=== PATIENT | female | born 1950 | race Caucasian/White ===

== ENCOUNTER 2018-06-25 09:05 | Day surgery (SDC) | payer OTHER ==
[~2018-06-25 09:05] MED LIST: ALBU90OI6; AMLO5 PO; AMOCLA875 PO; ASPI81CH PO; ATECHL PO; ATEN25 PO; ATEN50 PO; ATOR40TA PO; AZIT250 PO; Allergy Relief10 M1 PO; BUSP10 PO; CEFA500 PO; CHOL10002 PO; CITA20; CLIN300 PO; CODGUAEL PO; CYCL10 PO; Coq-10100 MG PO; FISH1000 PO; FLINTSTONES GU1 EACH PO; FLUO20; FLUO20 PO; GLUCHON; Glucophage1000 MG; HYDACE5 PO; IRBE150 PO; LORA10ER PO; LOSA50; MELO7.5; MULVITMINF; NITR.4SL SL; OXYACE5T PO; Omeprazole20 M1 PO; RED YEAST RICE; RESTASIS EYE GTTS; RXHYDACE PO; SULTRIDS PO; VITAMIN B122500 MC1 PO; [UNRECOGNIZED DRUG - CODE]
[2018-06-25] MEDS ORDERED: TIZANIDINE HCL4 MG PO (15:03)
[2018-06-25] MEDS ORDERED: HYDR1TAB94 PO (15:05)
[2018-06-26 04:50] LABS: BASOPHILS ABSOLUTE AUTO 0.02 K/mm3 (0.00-0.23); BASOPHILS PERCENT AUTO 0 % (0-2); EOSINOPHILS PERCENT AUTO 0 % (0-6); Hematocrit 31.5 % (33.0-51.0); Hemoglobin 10.1 g/dL (11.5-16.0); IMMATURE GRAN ABSOLUTE AUTO 0.05 K/mm3 (0.00-0.10); IMMATURE GRAN PERCENT AUTO 0 % (0-1); LYMPHOCYTES ABSOLUTE AUTO 1.31 K/mm3 (0.84-5.20); LYMPHOCYTES PERCENT AUTO 9 % (21-46); MONOCYTES ABSOLUTE AUTO 0.55 K/mm3 (0.16-1.47); MONOCYTES PERCENT AUTO 4 % (4-13); Mean Corpuscular HGB 31.7 pg (26.0-34.0); Mean Corpuscular HGB Conc 32.1 g/dL (31.5-36.5); Mean Corpuscular Volume 99 fL (80-100); Mean Platelet Volume 12.3 fL (9.1-12.4); NEUTROPHILS ABSOLUTE AUTO 12.57 K/mm3 (1.96-9.15); NEUTROPHILS PERCENT AUTO 87 % (41-73); Platelet Count 174 K/mm3 (150-400); RDW Coefficient Variation 12.1 % (11.7-14.2); Red Blood Cell Count 3.19 M/mm3 (3.80-5.20)
[2018-06-26 05:25] LABS: Magnesium, Blood 1.9 mg/dL (1.6-2.4)
[2018-06-26 05:27] LABS: Calcium, Blood 8.2 mg/dL (8.5-10.1); Potassium, Blood 4.2 mmol/L (3.5-5.5)
[2018-06-26] MEDS ORDERED: ENOX40I SC (07:45)
[2018-06-26] MEDS ORDERED: Percocet 5-3251 EACH PO (07:45)
== END 2018-06-26 11:30 | disposition home or self-care (01) ==
LOC: ORSCMMR 09:05 → ORD 10:30 → SURS 14:32 → ORSCMMR 06-26 11:30
PROVIDERS: Orthopaedic Surgery
PROC: 0SRC0J9 Replacement of Right Knee Joint with Synthetic Substitute, Cemented, Open Approach (ICD-10-PCS; principal; 2018-06-26)
PROC: 8E0YXBZ Computer Assisted Procedure of Lower Extremity (ICD-10-PCS; principal; 2018-06-26)
DX: M17.11 Unilateral primary osteoarthritis, right knee (principal); J45.909 Unspecified asthma, uncomplicated; G47.33 Obstructive sleep apnea (adult) (pediatric); I10 Essential (primary) hypertension; F32.9 Major depressive disorder, single episode, unspecified; K21.9 Gastro-esophageal reflux disease without esophagitis; E66.9 Obesity, unspecified; Z68.41 Body mass index [BMI] 40.0-44.9, adult; Z79.82 Long term (current) use of aspirin; Z79.899 Other long term (current) drug therapy
CPT/HCPCS: 36415; 73560-RT; 80048; 83735; 85025; 86850; 86900; 86901; 97110; 97116; 97162; 97530; C1713; C1776; G8978; G8979; G8980; J0171; J0690; J0735; J1100; J1650; J1885; J2250; J2405; J2795; J3010; J3370; J7120

== ENCOUNTER 2018-10-29 09:01 | Day surgery (SDC) | payer OTHER ==
[~2018-10-29] VITALS: Wt 96.2 kg
[~2018-10-29 09:01] MED LIST changes: +ENOX40I SC; +HYDR1TAB94 PO; +Percocet 5-3251 EACH PO; +TIZANIDINE HCL4 MG PO
--- NOTE | 2018-10-29 09:40 | NUR ---
PT ADMITTED TO [facility]. AGREES WITH PLANNED SURGERY. MEDS, ALLERGIES, AND HX REVIEWED. LUNG SOUNDS CLEAR. PT STATES 5 DAYS OF MUPIROCIN OINTMENT BILATERALLY TO NARES AND CHLORHEXADINE SHOWER X5 DAYS.
--- NOTE | 2018-10-29 10:00 | NUR ---
NOZIN AMPULES X3 TO NARES BILATERALLY.
--- NOTE | 2018-10-29 10:48 | NUR ---
UP TO THE BATHROOM TO VOID.
--- NOTE | 2018-10-29 16:22 | NUR ---
10/29/18 1622 Waqas Garcia AREAS OF SKIN BREAKDOWN NOTED ON ABDOMINAL FOLDS
--- NOTE | 2018-10-29 19:41 | NUR ---
SHIFT SUMMARY PAIN HAS BEEN MANGED WITH PO PAIN MEDICATION. PT IS A 1 ASSIST WHEN OOB. TOLERATING PO WELL. VSS. REPORT GIVEN TO ALYSSA SHORT.
[2018-10-30 04:08] LABS: BASOPHILS ABSOLUTE AUTO 0.01 K/mm3 (0.00-0.23); BASOPHILS PERCENT AUTO 0 % (0-2); EOSINOPHILS PERCENT AUTO 0 % (0-6); Hematocrit 29.4 % (33.0-51.0); Hemoglobin 9.4 g/dL (11.5-16.0); IMMATURE GRAN ABSOLUTE AUTO 0.04 K/mm3 (0.00-0.10); IMMATURE GRAN PERCENT AUTO 0 % (0-1); LYMPHOCYTES ABSOLUTE AUTO 1.01 K/mm3 (0.84-5.20); LYMPHOCYTES PERCENT AUTO 8 % (21-46); MONOCYTES ABSOLUTE AUTO 0.65 K/mm3 (0.16-1.47); MONOCYTES PERCENT AUTO 5 % (4-13); Mean Corpuscular HGB 31.9 pg (26.0-34.0); Mean Corpuscular Volume 100 fL (80-100); Mean Platelet Volume 11.8 fL (9.1-12.4); NEUTROPHILS ABSOLUTE AUTO 11.22 K/mm3 (1.96-9.15); NEUTROPHILS PERCENT AUTO 87 % (41-73); Platelet Count 186 K/mm3 (150-400); RDW Coefficient Variation 12.7 % (11.7-14.2); RDW Standard Deviation 46.4 fL (35.1-46.3); Red Blood Cell Count 2.95 M/mm3 (3.80-5.20); White Blood Cell Count 12.93 K/mm3 (4.00-11.30)
[2018-10-30 04:27] LABS: Anion Gap 8 mmol/L (6-16); Blood Urea Nitrogen 21 mg/dL (8-24); Bun/Creatinine Ratio 23.1 (12.0-20.0); CO2, Blood 26 mmol/L (21-32); Calcium, Blood 8.2 mg/dL (8.5-10.1); Chloride, Blood 105 mmol/L (98-108); Creatinine, Blood 0.91 mg/dL (0.40-1.00); Glomerular Filtration Rate >60 (60-); Glucose, Blood 153 mg/dL (70-99); Magnesium, Blood 1.8 mg/dL (1.6-2.4); Potassium, Blood 4.4 mmol/L (3.5-5.5); Sodium, Blood 139 mmol/L (136-145)
--- NOTE | 2018-10-30 04:40 | NUR ---
SHIFT SUMMARY ASSUMED CARE AT 0100, REPORT RECIEVED FROM CLARE, RN. PT A&O X4; POD#1 L TKA; MIKE WRAP CDI AT THIS TIME. PPPX4; PT DENIES N/T IN EXT. CRYOTHERAPY TO L KNEE WHILE PT IN BED. PAIN MANGED PER EMAR. PT UP TO TOILET WITH FWW AND SBA; MOVING WELL. PT DENIES CP, NAUSEA, AND SOB; RA. PATRICIO'S AND SCD'S TO BLE'S. CALL LIGHT IN REACH; PT DEMONSTRATES USE. WCTM UNTIL REPORT TO DAY SHIFT RN.
[2018-10-30] MEDS ORDERED: ENOX40I SC (11:10)
[2018-10-30] MEDS ORDERED: PROM25 PO (11:11)
[2018-10-30] MEDS ORDERED: OXYC5 PO (11:11)
[2018-10-30] MEDS ORDERED: ASPI325EC PO (11:13)
--- NOTE | 2018-10-30 12:28 | NUR ---
DISCHARGE PT PROVIDED WITH WRITTEN AND VERBAL DISCHARGE INSTRUCTIONS, DRESSINGS, AND SCRIPTS. SHE REPORTED UNDERSTANDING AFTER QUESTIONS WERE ANSWERED. EXTRA PATRICIO HODGSON PROVIDED. PT GIVEN PAIN MEDICATION PRIOR TO DISCHARGE. ESCORTED OUT IN W/C BY RODGER BENNETT AT APPROXIMATELY 1228.
== END 2018-10-30 12:28 | disposition home or self-care (01) ==
LOC: ORSCMMR 09:01 → ORD 10:30 → ORSCMMR 10:30 → SURS 15:20 → ORSCMMR 10-30 12:28
PROVIDERS: Orthopaedic Surgery
PROC: 8E0YXBZ Computer Assisted Procedure of Lower Extremity (ICD-10-PCS; principal; 2018-10-29 10:30)
PROC: 0SRD0J9 Replacement of Left Knee Joint with Synthetic Substitute, Cemented, Open Approach (ICD-10-PCS; principal; 2018-10-29 10:30)
DX: M17.12 Unilateral primary osteoarthritis, left knee (principal); I10 Essential (primary) hypertension; J45.909 Unspecified asthma, uncomplicated; I25.10 Atherosclerotic heart disease of native coronary artery without angina pectoris; E66.01 Morbid (severe) obesity due to excess calories; Z68.39 Body mass index [BMI] 39.0-39.9, adult; Z79.899 Other long term (current) drug therapy
CPT/HCPCS: 36415; 73560-LT; 80048; 83735; 85025; 86850; 86900; 86901; 88300; 97110; 97116; 97162; 97530; C1713; C1776; J0171; J0690; J0735; J1100; J1650; J1885; J2250; J2795; J3010; J3370; J7120

== ENCOUNTER 2018-11-05 13:26 | Emergency (ER) | payer OTHER ==
[~2018-11-05] VITALS: Ht 154.9 cm; Wt 95.2 kg
[~2018-11-05 13:26] MED LIST changes: +ASPI325EC PO; +OXYC5 PO; +PROM25 PO
== END 2018-11-05 13:45 | disposition home or self-care (01) ==
LOC: ER 13:26
DX: L02.31 Cutaneous abscess of buttock (principal); Z88.8 Allergy status to other drugs, medicaments and biological substances; Z91.041 Radiographic dye allergy status; Z79.82 Long term (current) use of aspirin; Z79.899 Other long term (current) drug therapy
CPT/HCPCS: 99283

== ENCOUNTER 2019-10-14 09:58 | Day surgery (SDC) | payer OTHER ==
[~2019-10-14] VITALS: Ht 154.9 cm; Wt 103.0 kg
[~2019-10-14 09:58] MED LIST changes: +ATOR10 PO; +CITA20 PO
[2019-10-14] MEDS ORDERED: VALS80 PO (10:18)
[2019-10-14] MEDS ORDERED: OMEPRAZOLE20 MG PO (10:20)
[2019-10-14] MEDS ORDERED: ELIQUIS5 M2 PO (10:22)
--- NOTE | 2019-10-14 14:46 | NUR ---
PT DRESSED, IV DC'D INTACT, AMB TO BTR X 2, TR BAND REMOVED, DRESSING TO R RADIAL SITE, R WRIST SPLINT PLACED, PT DC'D BY WC W DRIVING PT HOME, SEE RYTHMN STRIP RECORD FOR RECOVERY VITAL SIGNS. MEDS CALLED TO RX PER ORDER.
== END 2019-10-14 14:35 | disposition home or self-care (01) ==
LOC: MHTC 09:58
PROC: B201YZZ Plain Radiography of Multiple Coronary Arteries using Other Contrast (ICD-10-PCS; principal; 2019-10-14)
PROC: 4A023N7 Measurement of Cardiac Sampling and Pressure, Left Heart, Percutaneous Approach (ICD-10-PCS; principal; 2019-10-14)
PROC: B205YZZ Plain Radiography of Left Heart using Other Contrast (ICD-10-PCS; principal; 2019-10-14)
DX: I25.10 Atherosclerotic heart disease of native coronary artery without angina pectoris (principal); I10 Essential (primary) hypertension; E78.2 Mixed hyperlipidemia; K21.9 Gastro-esophageal reflux disease without esophagitis; E66.9 Obesity, unspecified; F41.9 Anxiety disorder, unspecified; Z79.82 Long term (current) use of aspirin; Z79.899 Other long term (current) drug therapy; Z91.041 Radiographic dye allergy status; Z88.8 Allergy status to other drugs, medicaments and biological substances; Z68.41 Body mass index [BMI] 40.0-44.9, adult
CPT/HCPCS: 76937; 85347; 93458; 93571; 99152; 99153; C1769; C1887; C1894; J1644; J2250; J3010; J7030; Q9967

== ENCOUNTER → 2022-07-26 | Outpatient (CLI) | payer OTHER ==
[~2022-07-26] MED LIST changes: +ELIQUIS5 M2 PO; +OMEPRAZOLE20 MG PO; +VALS80 PO
== END | disposition home or self-care (01) ==
LOC: LAB 10:33 → LAB SHORT 10:33
DX: L57.0 Actinic keratosis (principal); D04.5 Carcinoma in situ of skin of trunk
CPT/HCPCS: 88305

== ENCOUNTER → 2022-12-21 | Outpatient (CLI) | payer OTHER ==
[2022-12-21 19:28] LABS: Source, Urine Voided
[2022-12-21 19:48] LABS: Bacteria Few /hpf; Red Blood Cells, Urine 0-2 /hpf (0-2); Squamous Epithelial Cells Few /hpf (Few)
== END ==
LOC: LAB SHORT 17:40
PROVIDERS: Family Medicine
DX: M54.50 Low back pain, unspecified (principal); R30.0 Dysuria
CPT/HCPCS: 81015; 87086

== ENCOUNTER 2023-02-21 13:49 | Day surgery (SDC) | payer OTHER ==
[~2023-02-21] VITALS: Ht 154.9 cm; Wt 82.9 kg
[2023-02-21] MEDS ORDERED: Bystolic2.5 MG (14:07)
[2023-02-21 16:39] VITALS: BP 114/53
== END 2023-02-21 16:41 | disposition home or self-care (01) ==
LOC: ORSCSDS 13:49
PROVIDERS: Internal Medicine Gastroenterology
PROC: 0DBL8ZX Excision of Transverse Colon, Via Natural or Artificial Opening Endoscopic, Diagnostic (ICD-10-PCS; principal; 2023-02-21 15:15)
DX: Z12.11 Encounter for screening for malignant neoplasm of colon (principal); Z86.010 Personal history of colon polyps; D12.3 Benign neoplasm of transverse colon; K64.8 Other hemorrhoids; I10 Essential (primary) hypertension; K21.9 Gastro-esophageal reflux disease without esophagitis; Z98.84 Bariatric surgery status; Z79.899 Other long term (current) drug therapy; Z79.01 Long term (current) use of anticoagulants
CPT/HCPCS: 88305; J0330; J0461; J2001; J2405; J2704; J7120; Q9968

== ENCOUNTER → 2023-02-26 | Outpatient (CLI) | payer OTHER ==
[~2023-02-26] MED LIST changes: +Bystolic2.5 MG
[2023-02-27 13:16] LABS: Adenovirus F 40/41 Not Detected (NOT DETECT); Astrovirus Not Detected (NOT DETECT); Campylobacter Sp Not Detected (NOT DETECT); Cryptosporidium Not Detected (NOT DETECT); Cyclospora Cayetanensis Not Detected (NOT DETECT); E. Coli O157 Not Detected (NOT DETECT); Entamoeba Histolytica Not Detected (NOT DETECT); Enteroaggregative E. coli-EAEC Not Detected (NOT DETECT); Enteropathogenic E. coli-EPEC Not Detected (NOT DETECT); Enterotoxigenic E. coli-ETEC Not Detected (NOT DETECT); Giardia Lamblia Not Detected (NOT DETECT); Norovirus GI/GII Not Detected (NOT DETECT); Plesiomonas Shigelloides Not Detected (NOT DETECT); Rotavirus A Not Detected (NOT DETECT); Salmonella Sp Not Detected (NOT DETECT); Sapovirus Not Detected (NOT DETECT); Shiga Toxin-prod E. coli-STEC Not Detected (NOT DETECT); Shigella/Enteroin E. coli-EIEC Not Detected (NOT DETECT); Vibrio Cholerae Not Detected (NOT DETECT); Vibrio Sp Not Detected (NOT DETECT); Yersinia Enterocolitica Not Detected (NOT DETECT)
== END ==
LOC: LAB 08:00 → LAB SHORT 08:00
PROVIDERS: Internal Medicine Gastroenterology
DX: K52.9 Noninfective gastroenteritis and colitis, unspecified (principal)
CPT/HCPCS: 87507

== ENCOUNTER → 2023-03-01 | Outpatient (CLI) | payer OTHER | END | disposition home or self-care (01) | LOC: LAB 11:36 → LAB SHORT 11:36 | PROVIDERS: Internal Medicine Gastroenterology | DX: K52.9 Noninfective gastroenteritis and colitis, unspecified (principal) | CPT/HCPCS: 82710 ==

== ENCOUNTER → 2023-03-27 | Outpatient (CLI) | payer OTHER | LOC: LAB SHORT 07:00 → LAB 07:00 | DX: K52.9 Noninfective gastroenteritis and colitis, unspecified (principal) | CPT/HCPCS: 82653 ==

== ENCOUNTER 2023-04-09 07:18 | Day surgery (SDC) | payer OTHER ==
[~2023-04-09] VITALS: Ht 154.9 cm; Wt 84.1 kg
--- NOTE | 2023-04-09 07:48 | NUR ---
04/09/23 0748 Maria Elena Villar CALL LIGHT WITHIN REACH. TETRACAINE IN AT 0741 IN RIGHT EYE AND PLEDGETT IN AT 07
[2023-04-09 09:12] VITALS: BP 137/66
--- NOTE | 2023-04-09 09:23 | NUR ---
[facility]
== END 2023-04-09 09:31 | disposition home or self-care (01) ==
LOC: ORSCSDS 07:18
PROVIDERS: Student in an Organized Health Care Education/Training Program
PROC: 08DJ3ZZ Extraction of Right Lens, Percutaneous Approach (ICD-10-PCS; principal; 2023-04-09 08:30)
DX: H25.13 Age-related nuclear cataract, bilateral (principal); H52.213 Irregular astigmatism, bilateral; I10 Essential (primary) hypertension; G47.33 Obstructive sleep apnea (adult) (pediatric); I25.10 Atherosclerotic heart disease of native coronary artery without angina pectoris; K21.9 Gastro-esophageal reflux disease without esophagitis; Z79.01 Long term (current) use of anticoagulants; Z79.899 Other long term (current) drug therapy
CPT/HCPCS: J2250; J3010; J7040; V2632

== ENCOUNTER → 2023-07-15 | Outpatient (CLI) | payer OTHER | LOC: PLD 08:26 → LAB SHORT 08:26 | DX: L91.0 Hypertrophic scar (principal) | CPT/HCPCS: 88305 ==

== ENCOUNTER → 2023-08-12 | Outpatient (CLI) | payer OTHER ==
[2023-08-12 08:36] LABS: BASOPHILS ABSOLUTE AUTO 0.03 K/mm3 (0.00-0.23); BASOPHILS PERCENT AUTO 1 % (0-2); Hematocrit 31.3 % (33.0-51.0); Hemoglobin 10.3 g/dL (11.5-16.0); LYMPHOCYTES ABSOLUTE AUTO 1.27 K/mm3 (0.84-5.20); LYMPHOCYTES PERCENT AUTO 26 % (21-46); MONOCYTES ABSOLUTE AUTO 0.61 K/mm3 (0.16-1.47); MONOCYTES PERCENT AUTO 12 % (4-13); Mean Corpuscular HGB 32.6 pg (26.0-34.0); Mean Corpuscular HGB Conc 32.9 g/dL (31.5-36.5); Mean Corpuscular Volume 99 fL (80-100); RDW Coefficient Variation 12.7 % (11.7-14.2); RDW Standard Deviation 46.2 fL (35.1-46.3); Red Blood Cell Count 3.16 M/mm3 (3.80-5.20); White Blood Cell Count 4.94 K/mm3 (4.00-11.30)
[2023-08-12 08:45] LABS: EOSINOPHILS PERCENT AUTO 0 % (0-6); IMMATURE GRAN ABSOLUTE AUTO 0.01 K/mm3 (0.00-0.10); IMMATURE GRAN PERCENT AUTO 0 % (0-1); NEUTROPHILS ABSOLUTE AUTO 3.02 K/mm3 (1.96-9.15); NEUTROPHILS PERCENT AUTO 61 % (41-73)
[2023-08-12 08:49] LABS: Albumin, Blood 2.9 g/dL (3.4-5.0); Albumin/Globulin Ratio 0.8 (0.8-1.8); Bilirubin, Total 0.6 mg/dL (0.1-1.0); Bun/Creatinine Ratio 10.4 (12.0-20.0); Calcium, Blood 8.3 mg/dL (8.5-10.1); Creatinine, Blood 1.15 mg/dL (0.40-1.00); Globulin, Blood 3.5 g/dL (2.2-4.0); Potassium, Blood 3.1 mmol/L (3.5-5.5); Total Protein, Blood 6.4 g/dL (6.4-8.2)
[2023-08-12 09:16] LABS: Mean Platelet Volume 11.3 fL (9.1-12.4); Platelet Count 135 K/mm3 (150-400)
[2023-08-12 15:53] LABS: Campylobacter Sp Detected (NOT DETECT); Plesiomonas Shigelloides Not Detected (NOT DETECT); Salmonella Sp Not Detected (NOT DETECT); Vibrio Cholerae Not Detected (NOT DETECT); Vibrio Sp Not Detected (NOT DETECT); Yersinia Enterocolitica Not Detected (NOT DETECT)
[2023-08-12 15:54] LABS: Adenovirus F 40/41 Not Detected (NOT DETECT); Astrovirus Not Detected (NOT DETECT); Cryptosporidium Not Detected (NOT DETECT); Cyclospora Cayetanensis Not Detected (NOT DETECT); E. Coli O157 Not Detected (NOT DETECT); Entamoeba Histolytica Not Detected (NOT DETECT); Enteroaggregative E. coli-EAEC Detected (NOT DETECT); Enteropathogenic E. coli-EPEC Not Detected (NOT DETECT); Enterotoxigenic E. coli-ETEC Not Detected (NOT DETECT); Giardia Lamblia Not Detected (NOT DETECT); Norovirus GI/GII Not Detected (NOT DETECT); Rotavirus A Not Detected (NOT DETECT); Sapovirus Not Detected (NOT DETECT); Shiga Toxin-prod E. coli-STEC Not Detected (NOT DETECT); Shigella/Enteroin E. coli-EIEC Not Detected (NOT DETECT)
== END ==
LOC: LAB SHORT 08:32 → LAB 08:32
PROVIDERS: Physician Assistant
DX: R10.9 Unspecified abdominal pain (principal); R19.7 Diarrhea, unspecified
CPT/HCPCS: 80053; 83690; 85025; 87507

== ENCOUNTER → 2023-08-14 | Outpatient (CLI) | payer OTHER ==
[2023-08-14 13:23] LABS: BASOPHILS ABSOLUTE AUTO 0.07 K/mm3 (0.00-0.23); BASOPHILS PERCENT AUTO 1 % (0-2); Hematocrit 30.8 % (33.0-51.0); Hemoglobin 10.2 g/dL (11.5-16.0); LYMPHOCYTES ABSOLUTE AUTO 1.22 K/mm3 (0.84-5.20); LYMPHOCYTES PERCENT AUTO 18 % (21-46); MONOCYTES ABSOLUTE AUTO 0.98 K/mm3 (0.16-1.47); MONOCYTES PERCENT AUTO 15 % (4-13); Mean Corpuscular HGB 32.2 pg (26.0-34.0); Mean Corpuscular HGB Conc 33.1 g/dL (31.5-36.5); Mean Corpuscular Volume 97 fL (80-100); Mean Platelet Volume 12.1 fL (9.1-12.4); Platelet Count 150 K/mm3 (150-400); RDW Coefficient Variation 12.9 % (11.7-14.2); RDW Standard Deviation 45.7 fL (35.1-46.3); Red Blood Cell Count 3.17 M/mm3 (3.80-5.20); White Blood Cell Count 6.63 K/mm3 (4.00-11.30)
[2023-08-14 13:30] LABS: Calcium, Blood 8.4 mg/dL (8.5-10.1); Creatinine, Blood 1.25 mg/dL (0.40-1.00); Magnesium, Blood 1.8 mg/dL (1.6-2.4); Potassium, Blood 3.2 mmol/L (3.5-5.5)
[2023-08-14 13:37] LABS: EOSINOPHILS ABSOLUTE AUTO 0.04 K/mm3 (0.00-0.68); EOSINOPHILS PERCENT AUTO 1 % (0-6); IMMATURE GRAN ABSOLUTE AUTO 0.06 K/mm3 (0.00-0.10); IMMATURE GRAN PERCENT AUTO 1 % (0-1); NEUTROPHILS ABSOLUTE AUTO 4.26 K/mm3 (1.96-9.15); NEUTROPHILS PERCENT AUTO 64 % (41-73)
== END | disposition home or self-care (01) ==
LOC: LAB 13:19 → LAB SHORT 13:19
PROVIDERS: Physician Assistant
DX: R19.7 Diarrhea, unspecified (principal)
CPT/HCPCS: 80048; 83735; 85025

== ENCOUNTER → 2023-08-29 | Outpatient (CLI) | payer OTHER ==
[~2023-08-29] MED LIST changes: +ATOR20 PO; +Colace250 MG PO
== END | disposition home or self-care (01) ==
LOC: LAB 07:20 → LAB SHORT 07:20
DX: R30.0 Dysuria (principal)
CPT/HCPCS: 87086

== ENCOUNTER 2023-09-01 10:37 | Inpatient (IN) | payer OTHER ==
[~2023-09-01] VITALS: Ht 154.9 cm; Wt 88.1 kg
[2023-09-01] VITALS (9 sets, daily range): BP systolic 107–138; BP diastolic 59–75
[~2023-09-01 10:37] MED LIST changes: -ATOR20 PO; -Colace250 MG PO
[2023-09-01 11:43] LABS: BASOPHILS ABSOLUTE AUTO 0.06 K/mm3 (0.00-0.23); BASOPHILS PERCENT AUTO 1 % (0-2); EOSINOPHILS ABSOLUTE AUTO 0.03 K/mm3 (0.00-0.68); EOSINOPHILS PERCENT AUTO 0 % (0-6); Hematocrit 20.7 % (33.0-51.0); Hemoglobin 6.4 g/dL (11.5-16.0); IMMATURE GRAN ABSOLUTE AUTO 0.05 K/mm3 (0.00-0.10); IMMATURE GRAN PERCENT AUTO 0 % (0-1); LYMPHOCYTES ABSOLUTE AUTO 2.94 K/mm3 (0.84-5.20); LYMPHOCYTES PERCENT AUTO 24 % (21-46); MONOCYTES ABSOLUTE AUTO 0.43 K/mm3 (0.16-1.47); MONOCYTES PERCENT AUTO 4 % (4-13); Mean Corpuscular HGB 31.8 pg (26.0-34.0); Mean Corpuscular HGB Conc 30.9 g/dL (31.5-36.5); Mean Corpuscular Volume 103 fL (80-100); Mean Platelet Volume 11.5 fL (9.1-12.4); NEUTROPHILS ABSOLUTE AUTO 8.81 K/mm3 (1.96-9.15); NEUTROPHILS PERCENT AUTO 72 % (41-73); Platelet Count 245 K/mm3 (150-400); RDW Coefficient Variation 13.5 % (11.7-14.2); RDW Standard Deviation 50.9 fL (35.1-46.3); Red Blood Cell Count 2.01 M/mm3 (3.80-5.20); White Blood Cell Count 12.32 K/mm3 (4.00-11.30)
[2023-09-01 12:16] LABS: Albumin, Blood 2.4 g/dL (3.4-5.0); Albumin/Globulin Ratio 0.9 (0.8-1.8); Bilirubin, Total 0.2 mg/dL (0.1-1.0); Calcium, Blood 7.5 mg/dL (8.5-10.1); Creatinine, Blood 0.79 mg/dL (0.40-1.00); Globulin, Blood 2.8 g/dL (2.2-4.0); Potassium, Blood 4.6 mmol/L (3.5-5.5); Total Protein, Blood 5.2 g/dL (6.4-8.2)
[2023-09-01] MEDS ORDERED: Colace250 MG PO (13:04)
[2023-09-01 14:21] LABS: Source, Urine Fem Cath
[2023-09-01 14:28] LABS: Appearance, Urine Clear (Clear); Bilirubin, Urine Neg (Neg); Blood, Urine Neg (Neg); Color, Urine Yellow (P-Yellow); Glucose Qualitative, Urine Neg (Neg); Ketones, Urine Neg (Neg); Leukocyte Esterase, Urine Neg (Neg); Nitrite, Urine Neg (Neg); Protein, Urine Neg (Neg); Specific Gravity, Urine 1.015 (1.003-1.022); Urobilinogen, Urine NORM (Normal)
[2023-09-01 14:41] LABS: Percent Saturation 28.8 % (15.0-50.0)
[2023-09-01] MEDS ORDERED: ATOR20 PO (16:11)
--- NOTE | 2023-09-01 17:46 | NUR ---
NEW ADMIT ARRIVED AT 1600, BLOOD TRANSFUSING AT TIME OF ARRIVAL, VSS. LUNGS SOUNDS CLEAR. PATIENT IS AOX4. DENIES N/T. PALE IN SKIN IN APPEARANCE. CAP REFILL<3 SEC. STRONG PEDAL AND RADIAL PULSES. SECOND UNIT OF PRBC'S VERIFIED AND STARTED @1737. VSS, LUNG SOUNDS CLEAR. PATIENT SIG OTHER IN ROOM. PATIENT IS TOELRATING CL DIET AT THIS TIME. CBC LAB FOR 1 HOUR AFTER LAST UNIT TRANSFUSED. CALL LIGHT IN REACH.
[2023-09-01 20:50] LABS: BASOPHILS ABSOLUTE AUTO 0.05 K/mm3 (0.00-0.23); BASOPHILS PERCENT AUTO 0 % (0-2); EOSINOPHILS ABSOLUTE AUTO 0.05 K/mm3 (0.00-0.68); EOSINOPHILS PERCENT AUTO 0 % (0-6); Hematocrit 25.4 % (33.0-51.0); Hemoglobin 8.2 g/dL (11.5-16.0); IMMATURE GRAN ABSOLUTE AUTO 0.03 K/mm3 (0.00-0.10); IMMATURE GRAN PERCENT AUTO 0 % (0-1); LYMPHOCYTES ABSOLUTE AUTO 3.99 K/mm3 (0.84-5.20); LYMPHOCYTES PERCENT AUTO 34 % (21-46); MONOCYTES ABSOLUTE AUTO 0.84 K/mm3 (0.16-1.47); MONOCYTES PERCENT AUTO 7 % (4-13); Mean Corpuscular HGB 30.5 pg (26.0-34.0); Mean Corpuscular HGB Conc 32.3 g/dL (31.5-36.5); Mean Platelet Volume 11.1 fL (9.1-12.4); NEUTROPHILS ABSOLUTE AUTO 6.85 K/mm3 (1.96-9.15); NEUTROPHILS PERCENT AUTO 58 % (41-73); Platelet Count 189 K/mm3 (150-400); RDW Coefficient Variation 16.6 % (11.7-14.2); RDW Standard Deviation 56.4 fL (35.1-46.3); Red Blood Cell Count 2.69 M/mm3 (3.80-5.20); White Blood Cell Count 11.81 K/mm3 (4.00-11.30)
[2023-09-01 20:53] LABS: Mean Corpuscular Volume 94 fL (80-100)
[2023-09-02 05:00] VITALS: BP 136/55
[2023-09-02 06:40] LABS: BASOPHILS ABSOLUTE AUTO 0.07 K/mm3 (0.00-0.23); BASOPHILS PERCENT AUTO 1 % (0-2); EOSINOPHILS ABSOLUTE AUTO 0.16 K/mm3 (0.00-0.68); EOSINOPHILS PERCENT AUTO 2 % (0-6); Hematocrit 24.5 % (33.0-51.0); Hemoglobin 7.9 g/dL (11.5-16.0); IMMATURE GRAN ABSOLUTE AUTO 0.04 K/mm3 (0.00-0.10); IMMATURE GRAN PERCENT AUTO 0 % (0-1); LYMPHOCYTES ABSOLUTE AUTO 3.66 K/mm3 (0.84-5.20); LYMPHOCYTES PERCENT AUTO 41 % (21-46); MONOCYTES ABSOLUTE AUTO 0.55 K/mm3 (0.16-1.47); MONOCYTES PERCENT AUTO 6 % (4-13); Mean Corpuscular HGB 30.3 pg (26.0-34.0); Mean Corpuscular HGB Conc 32.2 g/dL (31.5-36.5); Mean Corpuscular Volume 94 fL (80-100); Mean Platelet Volume 11.8 fL (9.1-12.4); NEUTROPHILS ABSOLUTE AUTO 4.47 K/mm3 (1.96-9.15); NEUTROPHILS PERCENT AUTO 50 % (41-73); Platelet Count 171 K/mm3 (150-400); RDW Coefficient Variation 17.4 % (11.7-14.2); RDW Standard Deviation 59.2 fL (35.1-46.3); Red Blood Cell Count 2.61 M/mm3 (3.80-5.20); White Blood Cell Count 8.95 K/mm3 (4.00-11.30)
[2023-09-02 06:57] LABS: International Normalized Ratio 1.22; Prothrombin Time Results 12.7 Sec (9.7-11.5)
--- NOTE | 2023-09-02 07:02 | NUR ---
SHIFT SUMMARY ADMIT FOR GI BLEED, ADMINISTERED 2U PRBC, FOLLOWING CBC SHOWED INCREASED H&h, BUT DOWN THIS A.M. PT A&OX4, VERY PLEASANT AND COOPERATIVE. PT SLEPT WELL T/O NIGHT W/ USE OF HOME CPAP. PT INDEPENDENT IN ROOM. 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 PT REPORTS CONTINUED BLACK BLOOD IN STOOL. NO ACUTE CHANGES THIS SHIFT. CALL LIGHT W/IN REACH.
[2023-09-02 07:15] LABS: Albumin, Blood 2.5 g/dL (3.4-5.0); Bilirubin, Total 0.5 mg/dL (0.1-1.0); Bun/Creatinine Ratio 34.4 (12.0-20.0); Calcium, Blood 8.1 mg/dL (8.5-10.1); Creatinine, Blood 0.96 mg/dL (0.40-1.00); Globulin, Blood 2.5 g/dL (2.2-4.0); Magnesium, Blood 2.2 mg/dL (1.6-2.4); Phosphorus, Blood 3.6 mg/dL (2.5-4.9); Potassium, Blood 4.6 mmol/L (3.5-5.5)
[2023-09-02 07:23] VITALS: BP 133/62
[2023-09-02 12:12] VITALS: BP 146/60
[2023-09-02 14:32] VITALS: BP 151/53
[2023-09-02 17:42] LABS: Hematocrit 24.7 % (33.0-51.0); Hemoglobin 7.9 g/dL (11.5-16.0)
[2023-09-02 17:51] VITALS: BP 139/60
--- NOTE | 2023-09-02 18:30 | NUR ---
summary NO ACUTE CHANGES T/O SHIFT. PT'S VS AND H&H STABLE. PT HAS DENIED DIZZINESS OR SOB/CP. DR PHILLIPS IN THIS EVENING. PLAN FOR SCOPE TOMORROW. PT'S CALL LIGHT IN REACH.
[2023-09-02 19:15] VITALS: BP 135/59
[2023-09-03] VITALS (15 sets, daily range): BP systolic 88–173; BP diastolic 50–88
[2023-09-03 06:06] LABS: BASOPHILS ABSOLUTE AUTO 0.04 K/mm3 (0.00-0.23); BASOPHILS PERCENT AUTO 1 % (0-2); EOSINOPHILS ABSOLUTE AUTO 0.27 K/mm3 (0.00-0.68); EOSINOPHILS PERCENT AUTO 4 % (0-6); Hematocrit 21.6 % (33.0-51.0); Hemoglobin 7.2 g/dL (11.5-16.0); IMMATURE GRAN ABSOLUTE AUTO 0.02 K/mm3 (0.00-0.10); IMMATURE GRAN PERCENT AUTO 0 % (0-1); LYMPHOCYTES ABSOLUTE AUTO 2.74 K/mm3 (0.84-5.20); LYMPHOCYTES PERCENT AUTO 39 % (21-46); MONOCYTES PERCENT AUTO 7 % (4-13); Mean Corpuscular HGB 30.6 pg (26.0-34.0); Mean Corpuscular HGB Conc 33.3 g/dL (31.5-36.5); Mean Corpuscular Volume 92 fL (80-100); Mean Platelet Volume 11.7 fL (9.1-12.4); NEUTROPHILS ABSOLUTE AUTO 3.44 K/mm3 (1.96-9.15); NEUTROPHILS PERCENT AUTO 49 % (41-73); Platelet Count 151 K/mm3 (150-400); RDW Coefficient Variation 17.2 % (11.7-14.2); RDW Standard Deviation 56.4 fL (35.1-46.3); Red Blood Cell Count 2.35 M/mm3 (3.80-5.20); White Blood Cell Count 7.01 K/mm3 (4.00-11.30)
[2023-09-03 06:38] LABS: Albumin, Blood 2.4 g/dL (3.4-5.0); Albumin/Globulin Ratio 0.9 (0.8-1.8); Bilirubin, Total 0.3 mg/dL (0.1-1.0); Bun/Creatinine Ratio 15.9 (12.0-20.0); Calcium, Blood 8.2 mg/dL (8.5-10.1); Creatinine, Blood 0.94 mg/dL (0.40-1.00); Globulin, Blood 2.7 g/dL (2.2-4.0); Potassium, Blood 4.5 mmol/L (3.5-5.5); Total Protein, Blood 5.1 g/dL (6.4-8.2)
--- NOTE | 2023-09-03 07:52 | NUR ---
SUMMARY NO CHANGES THROUGH THE NIGHT, VSS, ON RA, DENIES PAIN/NAUSEA, NO BM'S, VOIDING WNL, CLEAR LIQUIDS UNTIL 0700 THEN SWITCHED TO ICE/WATER ONLY PER GI ORDERS, PT IS INDEPENDENT IN THE ROOM, REPORT GIVEN TO DAY RN, PT IS AWAKE RESTING IN BED, CALL LIGHT IN REACH
--- NOTE | 2023-09-03 11:27 | NUR ---
DR ALSTON IN TO SEE PT. DISCUSSED H&H. PLAN TO RECHECK LABS THIS EVENING.
--- NOTE | 2023-09-03 12:50 | NUR ---
09/03/23 7200 Kamar Pedro HISTORY, CHART, MEDICATIONS AND ALLERGIES REVIEWED BEFORE START OF PROCEDURE. PATIENT CONFIRMS NPO STATUS AND AGREES WITH SCHEDULED PROCEDURE. 3-LEAD EKG REVIEWED WITH PHYSICIAN PRIOR TO START OF PROCEDURE. MONITOR INTACT WITH CONTINUOUS PULSE OXIMETRY,CAPNOGRAPHY, 3-LEAD EKG, INTERMITTENT BP. SUPPLEMENTAL O2 TO BE TITRATED THROUGHOUT PROCEDURE TO MAINTAIN O2 SATURATION ABOVE 90%. PATIENT DETERMINED TO BE ASA APPROPRIATE FOR PROPOFOL SEDATION PRIOR TO START OF PROCEDURE BY DR. PHILLIPS.
--- NOTE | 2023-09-03 13:21 | NUR ---
pt arrived back to room from scope A&OX4. STOOD AND TRANSFERRED SELF FROM [facility] TO BED WITH MIN ASSIST. DENIES PAIN, N/V OR SOB. CALL LIGHT IN REACH.
--- NOTE | 2023-09-03 13:33 | NUR ---
DR PHILLIPS IN TO SEE PT.
--- NOTE | 2023-09-03 14:30 | NUR ---
Pt. is awake in bed and spouse is present when she welcomes me into the room. Pt. is pleasant, and rapport is established as we discussed common community connections. Facilitated a lengthy life review. Pt. displays evidence of awareness and engagement. Pt. verbalized an expectation to be discharged soon. Prayed with Pt. Pt. and spouse verbalize gratitude for the spiritual care visit.
[2023-09-03 14:42] LABS: Hematocrit 25.5 % (33.0-51.0); Hemoglobin 8.1 g/dL (11.5-16.0)
[2023-09-03] MEDS ORDERED: OMEP20ER PO (16:07)
--- NOTE | 2023-09-03 17:32 | NUR ---
DISCHARGED REVIEWED DC INSTRUCTIONS/ PT VERBALIZED UNDERSTANDING. PT LEFT UNIT IN WC W/POSSESSIONS AND DC INSTRUCTIONS IN HAND, ACCOMPANIED BY SIGNIFICANT OTHER. VSS.
[2023-09-04] MEDS ORDERED: DOCUSATE SODIU250 MG PO (09:58)
[2023-09-04] MEDS ORDERED: NEBIVOLOL HCL5 MG PO (09:59)
[2023-09-04] MEDS ORDERED: CELEXA40 M9 PO (09:59)
[2023-09-04] MEDS ORDERED: ATORVASTATIN CA20 MG PO (09:59)
== END 2023-09-03 17:00 | disposition home or self-care (01) | DRG 378 ==
LOC: ER 10:37 → SURS 14:49
PROVIDERS: Emergency Medicine; Internal Medicine; Internal Medicine Gastroenterology; ADMIT Family Medicine
PROC: 30233N1 Transfusion of Nonautologous Red Blood Cells into Peripheral Vein, Percutaneous Approach (ICD-10-PCS; 2023-09-01)
PROC: 0DJ08ZZ Inspection of Upper Intestinal Tract, Via Natural or Artificial Opening Endoscopic (ICD-10-PCS; principal; 2023-09-03 13:30)
DX: K92.2 Gastrointestinal hemorrhage, unspecified (principal); D62 Acute posthemorrhagic anemia; K92.1 Melena; I48.91 Unspecified atrial fibrillation; J45.909 Unspecified asthma, uncomplicated; G89.29 Other chronic pain; M54.9 Dorsalgia, unspecified; M79.671 Pain in right foot; M25.571 Pain in right ankle and joints of right foot; G47.33 Obstructive sleep apnea (adult) (pediatric); I10 Essential (primary) hypertension; F32.A Depression, unspecified; K21.9 Gastro-esophageal reflux disease without esophagitis; E66.9 Obesity, unspecified; M19.90 Unspecified osteoarthritis, unspecified site; K75.81 Nonalcoholic steatohepatitis (NASH); F41.9 Anxiety disorder, unspecified; Z79.01 Long term (current) use of anticoagulants; Z98.84 Bariatric surgery status; Z91.041 Radiographic dye allergy status; Z88.8 Allergy status to other drugs, medicaments and biological substances; Z86.010 Personal history of colon polyps; Z86.19 Personal history of other infectious and parasitic diseases; Z87.19 Personal history of other diseases of the digestive system; Z83.79 Family history of other diseases of the digestive system; Z68.34 Body mass index [BMI] 34.0-34.9, adult
CPT/HCPCS: 36415; 36430; 80053; 81003; 82271; 82607; 82652; 82728; 82746; 83540; 83550; 83735; 84100; 84484; 85014; 85018; 85025; 85610; 86850; 86900; 86901; 86923; 93005; 93010; 94660; 94762; 96361; 96374; 99285-25; A9270; C9113; J2704; J7030; J7120; P9016

== ENCOUNTER 2023-09-04 09:10 | Inpatient (IN) | payer OTHER ==
[~2023-09-04] VITALS: Ht 150 cm; Wt 79.0 kg
[~2023-09-04 09:10] MED LIST changes: +ATOR20 PO; +Colace250 MG PO; +OMEP20ER PO
[2023-09-04] MEDS ORDERED: DOCUSATE SODIU250 MG PO (09:58)
[2023-09-04] MEDS ORDERED: CELEXA40 M9 PO (09:59)
[2023-09-04] MEDS ORDERED: ATORVASTATIN CA20 MG PO (09:59)
[2023-09-04] MEDS ORDERED: NEBIVOLOL HCL5 MG PO (09:59)
[2023-09-04 10:13] LABS: BASOPHILS ABSOLUTE AUTO 0.03 K/mm3 (0.00-0.23); BASOPHILS PERCENT AUTO 0 % (0-2); EOSINOPHILS ABSOLUTE AUTO 0.18 K/mm3 (0.00-0.68); EOSINOPHILS PERCENT AUTO 2 % (0-6); Hematocrit 24.4 % (33.0-51.0); Hemoglobin 7.8 g/dL (11.5-16.0); IMMATURE GRAN ABSOLUTE AUTO 0.03 K/mm3 (0.00-0.10); IMMATURE GRAN PERCENT AUTO 0 % (0-1); LYMPHOCYTES ABSOLUTE AUTO 2.18 K/mm3 (0.84-5.20); LYMPHOCYTES PERCENT AUTO 26 % (21-46); MONOCYTES ABSOLUTE AUTO 0.51 K/mm3 (0.16-1.47); MONOCYTES PERCENT AUTO 6 % (4-13); Mean Corpuscular HGB 30.8 pg (26.0-34.0); Mean Corpuscular Volume 96 fL (80-100); Mean Platelet Volume 11.4 fL (9.1-12.4); NEUTROPHILS ABSOLUTE AUTO 5.42 K/mm3 (1.96-9.15); NEUTROPHILS PERCENT AUTO 65 % (41-73); Platelet Count 191 K/mm3 (150-400); RDW Coefficient Variation 16.8 % (11.7-14.2); RDW Standard Deviation 57.3 fL (35.1-46.3); Red Blood Cell Count 2.53 M/mm3 (3.80-5.20); White Blood Cell Count 8.35 K/mm3 (4.00-11.30)
[2023-09-04 10:37] LABS: Albumin, Blood 2.9 g/dL (3.4-5.0); Bilirubin, Total 0.4 mg/dL (0.1-1.0); Bun/Creatinine Ratio 15.8 (12.0-20.0); Calcium, Blood 8.4 mg/dL (8.5-10.1); Creatinine, Blood 0.95 mg/dL (0.40-1.00); Globulin, Blood 2.8 g/dL (2.2-4.0); Potassium, Blood 3.9 mmol/L (3.5-5.5); Total Protein, Blood 5.7 g/dL (6.4-8.2)
[2023-09-04 14:06] LABS: Hematocrit 26.6 % (33.0-51.0); Hemoglobin 8.5 g/dL (11.5-16.0)
[2023-09-04 14:18] VITALS: BP 143/77
--- NOTE | 2023-09-04 15:59 | NUR ---
LATE ENTRY/ER ADMIT 1345: RECEIVED REPORT FROM DASHA SHORT 1410: RECEIVED PT FROM ER VIA W/C, PLACED IN BED, MADE COMFORTABLE, ORIENTED TO ROOM & UNIT ROUTINE. IS A&O X 4, PLEASANT & COOPERATIVE WITH ALL CARE. STATES SHE "FEELS WOOZY" WHEN SHE STANDS UP, PROVIDED HER WITH CALL LIGHT & ENCOURAGED HER TO CALL FOR ASSISTANCE WHEN NEEDING TO GET UP. PT AGREED TO REQUEST. ON ADMIT H&H 7.8 & 24.4, SUBSEQUENT BLOOD DRAW RESULTED WITH H&H 8.5 & 26.6. SCD'S APPLIED TO BILAT LOWER EXT'S.
[2023-09-04 16:04] VITALS: BP 146/80
--- NOTE | 2023-09-04 16:10 | NUR ---
Pt. is awake in bed and welcomes my visit with a big smile. This transplant surgeon was with this Pt. prior to discharge from the surgical wing yesterdat. Rapport is quickly re-established. Pt. is pleasant, but does display some anxiety over the unknown causes of her condition. PPt. verbalized that she expects to have a colonoscopy. During our visit, Dr. Leslie visited and updated the Pt. facilitated life review, and prayed with the Pt. The pt. verbally expressed gratitude for the spiritual care visit and welcomed this transplant surgeon to return.
--- NOTE | 2023-09-04 19:04 | NUR ---
SHIFT SUMMARY PT HAS RESTED COMFORTABLY SINCE ADMIT. IS A&O X 4, VSS. H&H IS NOW 8.4 & 26.6. GI DOC HERE TO SEE PT. ORDERS RECEIVED FOR BOWEL PREP TO START TONIGHT & COLONOSCOPY FOR TOMORROW EARLY AFTERNOON. (SEE MD ORDERS) PT IS PLEASANT & COOPERATIVE WITH ALL CARE. IS STDBY ASSIST FOR RESTROOM USE. BED IS IN LOW POSITION & CALL LIGHT WITHIN REACH.
[2023-09-04 19:53] VITALS: BP 128/77
[2023-09-04 21:04] LABS: Hematocrit 32.5 % (33.0-51.0); Hemoglobin 10.3 g/dL (11.5-16.0)
[2023-09-05] VITALS (29 sets, daily range): BP systolic 69–138; BP diastolic 39–110
[2023-09-05 05:27] LABS: BASOPHILS ABSOLUTE AUTO 0.05 K/mm3 (0.00-0.23); BASOPHILS PERCENT AUTO 1 % (0-2); EOSINOPHILS ABSOLUTE AUTO 0.13 K/mm3 (0.00-0.68); EOSINOPHILS PERCENT AUTO 2 % (0-6); Hematocrit 26.9 % (33.0-51.0); IMMATURE GRAN ABSOLUTE AUTO 0.03 K/mm3 (0.00-0.10); IMMATURE GRAN PERCENT AUTO 0 % (0-1); LYMPHOCYTES ABSOLUTE AUTO 2.53 K/mm3 (0.84-5.20); LYMPHOCYTES PERCENT AUTO 35 % (21-46); MONOCYTES ABSOLUTE AUTO 0.57 K/mm3 (0.16-1.47); MONOCYTES PERCENT AUTO 8 % (4-13); Mean Corpuscular HGB 31.3 pg (26.0-34.0); Mean Corpuscular HGB Conc 33.5 g/dL (31.5-36.5); Mean Corpuscular Volume 93 fL (80-100); NEUTROPHILS ABSOLUTE AUTO 3.93 K/mm3 (1.96-9.15); NEUTROPHILS PERCENT AUTO 54 % (41-73); Platelet Count 200 K/mm3 (150-400); RDW Coefficient Variation 16.8 % (11.7-14.2); Red Blood Cell Count 2.88 M/mm3 (3.80-5.20); White Blood Cell Count 7.24 K/mm3 (4.00-11.30)
--- NOTE | 2023-09-05 05:38 | NUR ---
PT CONT TO DO BETTER THIS MORNING WAS ABLE TO SLEEP THROUGH THE NIGHT WITHOUT ANY ISSUES, VSS AND CALLS APPROPRIATLY. WILL CONT TO MONITOR.
[2023-09-05 05:48] LABS: Albumin, Blood 2.7 g/dL (3.4-5.0); Albumin/Globulin Ratio 0.8 (0.8-1.8); Bilirubin, Total 0.5 mg/dL (0.1-1.0); Bun/Creatinine Ratio 9.5 (12.0-20.0); Calcium, Blood 8.7 mg/dL (8.5-10.1); Creatinine, Blood 0.84 mg/dL (0.40-1.00); Globulin, Blood 3.2 g/dL (2.2-4.0); Potassium, Blood 3.8 mmol/L (3.5-5.5); Total Protein, Blood 5.9 g/dL (6.4-8.2)
[2023-09-05 13:23] LABS: Hematocrit 29.8 % (33.0-51.0); Hemoglobin 9.6 g/dL (11.5-16.0)
--- NOTE | 2023-09-05 15:31 | NUR ---
PT HAS 18G IV TO LEFT FA THAT FLUSHES WELL AND FLOWS TO GRAVITY.
--- NOTE | 2023-09-05 15:56 | NUR ---
09/05/23 1556 Adriana Villar HISTORY, CHART, MEDICATIONS AND ALLERGIES REVIEWED BEFORE START OF PROCEDURE. PATIENT CONFIRMS NPO STATUS AND AGREES WITH SCHEDULED PROCEDURE. 3-LEAD EKG REVIEWED WITH PHYSICIAN PRIOR TO START OF PROCEDURE. MONITOR INTACT WITH CONTINUOUS PULSE OXIMETRY,CAPNOGRAPHY, 3-LEAD EKG, INTERMITTENT BP. SUPPLEMENTAL O2 TO BE TITRATED THROUGHOUT PROCEDURE TO MAINTAIN O2 SATURATION ABOVE 90%. PATIENT DETERMINED TO BE ASA APPROPRIATE FOR PROPOFOL SEDATION PRIOR TO START OF PROCEDURE BY .
--- NOTE | 2023-09-05 16:54 | NUR ---
SHIFT SUMMARY; PATIENT RECEIVED COLONOSCOPY PROCEDURE TODAY. PER REPORT IT WAS A DIAGNOSTIC EXAM AND NO AREAS OF CONCERN NOTED. PATIENT RETURNED TO ROOM APPROX 1645. AWAKE AND ORIENTED X 4. DENIES ANY PAIN OR DISCOMFORT. CARDIAC DIET ORDERED BY . VITAL SIGNS ARE HR SLIGHTLY TACKY AT 120' TO 90'S. SPOUSE AT BEDSIDE. BOLUS OF FLUIDS INFUSING REMAINING 500ML FROM SURGICAL NURSE.
[2023-09-06 04:40] VITALS: BP 114/72
[2023-09-06 05:43] LABS: BASOPHILS ABSOLUTE AUTO 0.04 K/mm3 (0.00-0.23); BASOPHILS PERCENT AUTO 1 % (0-2); EOSINOPHILS ABSOLUTE AUTO 0.22 K/mm3 (0.00-0.68); EOSINOPHILS PERCENT AUTO 3 % (0-6); Hematocrit 25.9 % (33.0-51.0); Hemoglobin 8.4 g/dL (11.5-16.0); IMMATURE GRAN ABSOLUTE AUTO 0.02 K/mm3 (0.00-0.10); IMMATURE GRAN PERCENT AUTO 0 % (0-1); LYMPHOCYTES ABSOLUTE AUTO 2.46 K/mm3 (0.84-5.20); LYMPHOCYTES PERCENT AUTO 36 % (21-46); MONOCYTES ABSOLUTE AUTO 0.48 K/mm3 (0.16-1.47); MONOCYTES PERCENT AUTO 7 % (4-13); Mean Corpuscular HGB 31.6 pg (26.0-34.0); Mean Corpuscular HGB Conc 32.4 g/dL (31.5-36.5); Mean Corpuscular Volume 97 fL (80-100); Mean Platelet Volume 11.4 fL (9.1-12.4); NEUTROPHILS ABSOLUTE AUTO 3.58 K/mm3 (1.96-9.15); NEUTROPHILS PERCENT AUTO 53 % (41-73); Platelet Count 209 K/mm3 (150-400); RDW Coefficient Variation 16.9 % (11.7-14.2); RDW Standard Deviation 57.1 fL (35.1-46.3); Red Blood Cell Count 2.66 M/mm3 (3.80-5.20)
[2023-09-06 06:40] LABS: Bun/Creatinine Ratio 9.9 (12.0-20.0); Calcium, Blood 8.3 mg/dL (8.5-10.1); Creatinine, Blood 0.91 mg/dL (0.40-1.00); Potassium, Blood 3.6 mmol/L (3.5-5.5)
[2023-09-06 08:34] VITALS: BP 121/73
--- NOTE | 2023-09-06 13:24 | NUR ---
Spiritual Care Follow Up. Pt. is prepariong to discharge. Considered matters of her prognosis. Pt. displays evidence of harlan at her discharge and verbalized gratitude for [facility] spiritual care visit(s).
== END 2023-09-06 13:33 | disposition home or self-care (01) | DRG 378 ==
LOC: ER 09:10 → MEDS 12:14 → ENPENDDIS 09-06 11:06 → MEDS 09-06 13:33
PROVIDERS: Emergency Medicine; ADMIT Internal Medicine
DX: K92.1 Melena (principal); D62 Acute posthemorrhagic anemia; K64.8 Other hemorrhoids; I10 Essential (primary) hypertension; E66.9 Obesity, unspecified; J45.909 Unspecified asthma, uncomplicated; K21.9 Gastro-esophageal reflux disease without esophagitis; M19.90 Unspecified osteoarthritis, unspecified site; G89.29 Other chronic pain; M54.9 Dorsalgia, unspecified; G47.33 Obstructive sleep apnea (adult) (pediatric); F41.8 Other specified anxiety disorders; M25.571 Pain in right ankle and joints of right foot; K75.81 Nonalcoholic steatohepatitis (NASH); I48.91 Unspecified atrial fibrillation; Z98.84 Bariatric surgery status; Z91.041 Radiographic dye allergy status; Z88.8 Allergy status to other drugs, medicaments and biological substances; Z86.14 Personal history of Methicillin resistant Staphylococcus aureus infection; Z87.19 Personal history of other diseases of the digestive system; Z79.01 Long term (current) use of anticoagulants; Z83.79 Family history of other diseases of the digestive system; Z68.25 Body mass index [BMI] 25.0-25.9, adult
CPT/HCPCS: 36415; 80048; 80053; 82947; 85014; 85018; 85025; 86850; 86900; 86901; 93005; 93010; 99285-25; A9270; J2704; J7120

== ENCOUNTER 2024-04-14 08:41 | Day surgery (SDC) | payer OTHER ==
[~2024-04-14] VITALS: Ht 154.9 cm; Wt 81.6 kg
[~2024-04-14 08:41] MED LIST changes: +ATORVASTATIN CA20 MG PO; +Balanced Salt Epinephrine Irrigation Solution 500 mL IR SCH; +CELEXA40 M9 PO; +DOCUSATE SODIU250 MG PO; +Lidocaine HCl/Pf 1% 5 ML VIAL XX SCH; +Moxifloxacin HCL 0.5 MG/0.1 ML 0.4MLSYR LEFTEYE SCH; +NEBIVOLOL HCL5 MG PO; +NS 500 ML IV ONE; +PHENYLEPHRINE\\TROPICAMIDE\\TETRACAINE OPHTHALMIC DILATING SOLN LEFTEYE PRN
[2024-04-14] MEDS ORDERED: NS 500 ML IV ONE (08:50)
[2024-04-14] MEDS ORDERED: FentaNYL Citrate 50 MCG/ML 2 ML Injection ONE (09:15)
[2024-04-14] MEDS ORDERED: Midazolam HCl 1MG / ML 2ML Vial ONE (09:15)
[2024-04-14] MEDS ORDERED: Povidone-Iodine 450 DROP/30 ML Solution LEFTEYE ONE (09:34)
[2024-04-14] MEDS ORDERED: Tetracaine HCl 0.5% Opth Soln 15 ml LEFTEYE ONE (09:34)
[2024-04-14 10:14] VITALS: BP 176/74
--- NOTE | 2024-04-14 10:16 | NUR ---
04/14/24 1016 MARTIN SAAVEDRA TEAMWORK FOR RECOVERY. DEJA HERNANDEZPRINT SHOP CHIEF CLERK/ I CHARTING IN ROOM DURING VISIT. PT DOING WELL
== END 2024-04-14 10:17 | disposition home or self-care (01) ==
LOC: ORSCSDS 08:41
PROVIDERS: Student in an Organized Health Care Education/Training Program
PROC: 08RK3JZ Replacement of Left Lens with Synthetic Substitute, Percutaneous Approach (ICD-10-PCS; principal; 2024-04-14 10:00)
DX: H25.812 Combined forms of age-related cataract, left eye (principal); Z96.1 Presence of intraocular lens; H52.202 Unspecified astigmatism, left eye; I10 Essential (primary) hypertension; I25.10 Atherosclerotic heart disease of native coronary artery without angina pectoris; K21.9 Gastro-esophageal reflux disease without esophagitis; G47.33 Obstructive sleep apnea (adult) (pediatric); Z98.84 Bariatric surgery status; K75.81 Nonalcoholic steatohepatitis (NASH); E78.00 Pure hypercholesterolemia, unspecified; Z79.01 Long term (current) use of anticoagulants; Z79.899 Other long term (current) drug therapy
CPT/HCPCS: J2250; J3010; J7040; V2632

== ENCOUNTER → 2024-05-25 | Outpatient (CLI) | payer OTHER ==
[~2024-05-25] MED LIST changes: -Balanced Salt Epinephrine Irrigation Solution 500 mL IR SCH; -Lidocaine HCl/Pf 1% 5 ML VIAL XX SCH; -Moxifloxacin HCL 0.5 MG/0.1 ML 0.4MLSYR LEFTEYE SCH; -NS 500 ML IV ONE; -PHENYLEPHRINE\\TROPICAMIDE\\TETRACAINE OPHTHALMIC DILATING SOLN LEFTEYE PRN
[2024-05-25 17:49] LABS: BASOPHILS ABSOLUTE AUTO 0.04 K/mm3 (0.00-0.23); BASOPHILS PERCENT AUTO 0 % (0-2); EOSINOPHILS ABSOLUTE AUTO 0.13 K/mm3 (0.00-0.68); EOSINOPHILS PERCENT AUTO 1 % (0-6); Hematocrit 35.1 % (33.0-51.0); Hemoglobin 11.5 g/dL (11.5-16.0); IMMATURE GRAN ABSOLUTE AUTO 0.04 K/mm3 (0.00-0.10); IMMATURE GRAN PERCENT AUTO 0 % (0-1); LYMPHOCYTES ABSOLUTE AUTO 0.75 K/mm3 (0.84-5.20); LYMPHOCYTES PERCENT AUTO 6 % (21-46); MONOCYTES ABSOLUTE AUTO 0.68 K/mm3 (0.16-1.47); MONOCYTES PERCENT AUTO 5 % (4-13); Mean Corpuscular HGB 32.7 pg (26.0-34.0); Mean Corpuscular HGB Conc 32.8 g/dL (31.5-36.5); Mean Corpuscular Volume 100 fL (80-100); Mean Platelet Volume 12.2 fL (9.1-12.4); NEUTROPHILS ABSOLUTE AUTO 11.32 K/mm3 (1.96-9.15); NEUTROPHILS PERCENT AUTO 87 % (41-73); Platelet Count 142 K/mm3 (150-400); RDW Coefficient Variation 12.7 % (11.7-14.2); RDW Standard Deviation 46.1 fL (35.1-46.3); Red Blood Cell Count 3.52 M/mm3 (3.80-5.20); White Blood Cell Count 12.96 K/mm3 (4.00-11.30)
[2024-05-25 17:58] LABS: Albumin, Blood 2.9 g/dL (3.4-5.0); Albumin/Globulin Ratio 0.7 (0.8-1.8); Bilirubin, Total 0.7 mg/dL (0.1-1.0); Bun/Creatinine Ratio 16.5 (12.0-20.0); Calcium, Blood 8.6 mg/dL (8.5-10.1); Creatinine, Blood 1.09 mg/dL (0.40-1.00); Globulin, Blood 4.1 g/dL (2.2-4.0); Potassium, Blood 3.4 mmol/L (3.5-5.5)
== END | disposition home or self-care (01) ==
LOC: LAB SHORT 17:40 → LAB 17:40
PROVIDERS: Physician Assistant
DX: R50.9 Fever, unspecified (principal)
CPT/HCPCS: 80053; 83605; 85025; 87086

== ENCOUNTER → 2024-05-27 | Outpatient (CLI) | payer OTHER ==
[2024-05-27 13:37] LABS: BASOPHILS ABSOLUTE AUTO 0.03 K/mm3 (0.00-0.23); BASOPHILS PERCENT AUTO 0 % (0-2); EOSINOPHILS ABSOLUTE AUTO 0.04 K/mm3 (0.00-0.68); EOSINOPHILS PERCENT AUTO 0 % (0-6); Hematocrit 32.1 % (33.0-51.0); Hemoglobin 10.7 g/dL (11.5-16.0); IMMATURE GRAN ABSOLUTE AUTO 0.02 K/mm3 (0.00-0.10); IMMATURE GRAN PERCENT AUTO 0 % (0-1); LYMPHOCYTES ABSOLUTE AUTO 1.86 K/mm3 (0.84-5.20); LYMPHOCYTES PERCENT AUTO 19 % (21-46); MONOCYTES ABSOLUTE AUTO 0.86 K/mm3 (0.16-1.47); MONOCYTES PERCENT AUTO 9 % (4-13); Mean Corpuscular HGB 33.1 pg (26.0-34.0); Mean Corpuscular HGB Conc 33.3 g/dL (31.5-36.5); Mean Corpuscular Volume 99 fL (80-100); Mean Platelet Volume 12.3 fL (9.1-12.4); NEUTROPHILS ABSOLUTE AUTO 7.27 K/mm3 (1.96-9.15); NEUTROPHILS PERCENT AUTO 72 % (41-73); Platelet Count 170 K/mm3 (150-400); RDW Coefficient Variation 12.6 % (11.7-14.2); RDW Standard Deviation 46.5 fL (35.1-46.3); Red Blood Cell Count 3.23 M/mm3 (3.80-5.20); White Blood Cell Count 10.08 K/mm3 (4.00-11.30)
[2024-05-27 13:45] LABS: Albumin, Blood 2.5 g/dL (3.4-5.0); Albumin/Globulin Ratio 0.6 (0.8-1.8); Bilirubin, Total 0.3 mg/dL (0.1-1.0); Bun/Creatinine Ratio 18.8 (12.0-20.0); Calcium, Blood 8.5 mg/dL (8.5-10.1); Creatinine, Blood 0.96 mg/dL (0.40-1.00); Globulin, Blood 4.1 g/dL (2.2-4.0); Potassium, Blood 3.2 mmol/L (3.5-5.5); Total Protein, Blood 6.6 g/dL (6.4-8.2)
== END | disposition home or self-care (01) ==
LOC: LAB SHORT 13:29
PROVIDERS: Family Medicine
DX: E86.0 Dehydration (principal)
CPT/HCPCS: 80053; 85025